=== PATIENT | female | born 1945 | race Caucasian/White ===

== ENCOUNTER → 2017-05-04 | Outpatient (CLI) | payer MEDICARE, OTHER ==
[~2017-05-04] MED LIST: ALBU90OI INH; Amoxicillin500 MG PO; FISH1000; FISH1000 PO; Multiple Vitam1 EAC1 PO; Vitamin D400 UNI1 PO
[2017-05-05 09:06] LABS: Candida species (DNA Probe) Negative (NEGATIVE); G. vaginalis (DNA Probe) Negative (NEGATIVE); T. vaginalis (DNA Probe) Negative (NEGATIVE)
== END ==
LOC: LAB EV 14:36 → LAB SHORT 14:36
PROVIDERS: Nurse Practitioner Family
DX: L90.0 Lichen sclerosus et atrophicus (principal); R10.2 Pelvic and perineal pain
CPT/HCPCS: 87480; 87510; 87660

== ENCOUNTER 2019-10-08 11:03 | Day surgery (SDC) | payer MEDICARE, OTHER ==
[~2019-10-08] VITALS: Ht 165.1 cm; Wt 84.7 kg
--- NOTE | 2019-10-08 12:01 | NUR ---
Ambulatory in Day Surgery. Surgical site prepped with 2% Chlorhexidine cloth wipe. History, Chart, Medications and Allergies reviewed before start of procedure. Patient confirms NPO status and agrees with scheduled surgery. PT DENIES QUESTIONS. NOZIN BILAT NARES X3. LUNGS CLEAR BILAT.
--- NOTE | 2019-10-08 18:48 | NUR ---
1 OXYCODONE GIVEN FOR 610 PAIN, PT HAD N/V SINCE PACU, HAD EMESIS X2, ZOFRAN AND REGLAN GIVEN, UNABLE TO TOLERATE REGULAR DIET, DSG C/D/I, REPORTS NAUSEA IS BETTER NOW, BLADDER SCAN 85ML, NO OTHER CHANGES THIS SHIFT.
[2019-10-09 04:22] LABS: BASOPHILS ABSOLUTE AUTO 0.02 K/mm3 (0.00-0.23); BASOPHILS PERCENT AUTO 0 % (0-2); EOSINOPHILS ABSOLUTE AUTO 0.01 K/mm3 (0.00-0.68); EOSINOPHILS PERCENT AUTO 0 % (0-6); IMMATURE GRAN ABSOLUTE AUTO 0.01 K/mm3 (0.00-0.10); IMMATURE GRAN PERCENT AUTO 0 % (0-1); LYMPHOCYTES ABSOLUTE AUTO 0.75 K/mm3 (0.84-5.20); LYMPHOCYTES PERCENT AUTO 13 % (21-46); MONOCYTES ABSOLUTE AUTO 0.51 K/mm3 (0.16-1.47); MONOCYTES PERCENT AUTO 9 % (4-13); Mean Corpuscular HGB 31.6 pg (26.0-34.0); Mean Corpuscular HGB Conc 32.4 g/dL (31.5-36.5); Mean Corpuscular Volume 97 fL (80-100); Mean Platelet Volume 11.5 fL (9.1-12.4); NEUTROPHILS ABSOLUTE AUTO 4.39 K/mm3 (1.96-9.15); NEUTROPHILS PERCENT AUTO 77 % (41-73); Platelet Count 148 K/mm3 (150-400); RDW Coefficient Variation 12.1 % (11.7-14.2); RDW Standard Deviation 43.3 fL (35.1-46.3); White Blood Cell Count 5.69 K/mm3 (4.00-11.30)
--- NOTE | 2019-10-09 04:34 | NUR ---
SHIFT SUMMARY L TKA, POD0, A/O, VSS, PT AMBULATED IN ROOM AFTER EDUCATION PROVIDED ON THE IMPORTANCE OF EARLY AMBULATION AFTER TKA SURGERY, AMBULATED WELL W/ 2 PERSON ASSIST INITIALLY, 1 PERSON ASSIST W/ AMBULATION AFTER THAT. PAIN CONTROLLED PER EMAR, TOLERATING PO, VOIDING WELL, USES CALL LIGHT APPROPRIATELY. CALL LIGHT IN REACH, WILL REPORT TO ONCOMING DAY RN.
[2019-10-09 04:45] LABS: Anion Gap 5 mmol/L (6-16); Blood Urea Nitrogen 10 mg/dL (8-24); Bun/Creatinine Ratio 14.3 (12.0-20.0); CO2, Blood 25 mmol/L (21-32); Calcium, Blood 7.9 mg/dL (8.5-10.1); Chloride, Blood 109 mmol/L (98-108); Glomerular Filtration Rate >60 (60-); Glucose, Blood 113 mg/dL (70-99); Magnesium, Blood 1.9 mg/dL (1.6-2.4); Potassium, Blood 4.1 mmol/L (3.5-5.5); Sodium, Blood 139 mmol/L (136-145)
[2019-10-09] MEDS ORDERED: ACET500 PO (09:03)
[2019-10-09] MEDS ORDERED: OXYC5 PO (09:04)
[2019-10-09] MEDS ORDERED: Aspirin EC81 MG PO (09:04)
--- NOTE | 2019-10-09 11:54 | NUR ---
DISCHARGE PT WAS PROVIDED WITH WRITTEN AND VERBAL DISCHARGE INSTRUCTIONS, SHE REPORTED UNDERSTANDING. DRESSINGS WERE PROVIDED. SCRIPT PROVIDED FOR PT. PT VERBALIZED UNDERSTANDING OF MEDICATION INSTRUCTIONS. PT ESCORTED OUT IN W/C BY ERICA HERRERA AT 1153.
--- NOTE | 2019-10-09 13:44 | NUR ---
10/09/19 1344 Cherise Allred VERIFICATIONS: EDIT CHART.
== END 2019-10-09 11:53 | disposition home or self-care (01) ==
LOC: ORSCMMR 11:03 → ORD 13:30 → SURS 16:25 → ORSCMMR 10-09 11:53
PROVIDERS: Orthopaedic Surgery
PROC: 0SRC0JA Replacement of Right Knee Joint with Synthetic Substitute, Uncemented, Open Approach (ICD-10-PCS; principal; 2019-10-08 13:30)
PROC: 8E0Y0CZ Robotic Assisted Procedure of Lower Extremity, Open Approach (ICD-10-PCS; principal; 2019-10-08 13:30)
DX: M17.12 Unilateral primary osteoarthritis, left knee (principal); Z87.891 Personal history of nicotine dependence
CPT/HCPCS: 27447; S2900; 36415; 73560-LT; 80048; 83735; 85025; 88300; 97110; 97116; 97162; 97530; A9270; C1776; J0171; J0690; J0735; J1885; J2250; J2405; J2704; J2765; J2795; J3010; J7120; Q0163

== ENCOUNTER 2020-05-05 08:48 | Emergency (ER) | payer MEDICARE, OTHER ==
[~2020-05-05] VITALS: Ht 165.1 cm; Wt 77.1 kg
[~2020-05-05 08:48] MED LIST changes: +ACET500 PO; +Aspirin EC81 MG PO; +OXYC5 PO
[2020-05-05] MEDS ORDERED: TRAZ50 PO (09:55)
== END 2020-05-05 10:09 | disposition home or self-care (01) ==
LOC: ER 08:48
DX: F41.9 Anxiety disorder, unspecified (principal); Z87.891 Personal history of nicotine dependence
CPT/HCPCS: 99284